=== PATIENT | female | born 1990 | race Caucasian/White ===

== ENCOUNTER 2017-03-08 13:20 | Emergency (ER) | payer OTHER ==
[~2017-03-08] VITALS: Ht 170.2 cm; Wt 70.5 kg
[2017-03-08 13:40] VITALS: BP 126/74
[2017-03-08] MEDS ORDERED: oxyCODONE/APAP 5/325 MG 1 TAB TAB PO ONE (15:00)
[2017-03-08] MEDS ORDERED: IBUPROFEN 600 MG TAB PO ONE (15:00)
[2017-03-08] MEDS ORDERED: ONDANSETRON 4 MG ODT PO ONE (15:00)
--- NOTE | 2017-03-08 15:11 | NUR ---
Pt taken to CT via w/c.
--- NOTE | 2017-03-08 15:31 | NUR ---
Pt back from CT. Lab at bedside for blood draw.
--- NOTE | 2017-03-08 15:33 | NUR ---
26/F presents to ED with c/o right flank pain x 2 days, worse today while at work. Descibes pain as sharp, non radiating, 05/27. C/o nausea, denies vomiting, denies fever or chills. Denies any trauma or injury. AOX4, clear speech. VSS.
--- NOTE | 2017-03-08 15:44 | NUR ---
Pt instructed to not drive after receiving medication being given. Pt verbalized understanding and called a friend for a ride.
[2017-03-08 15:59] LABS: ANION GAP 12.2 (8-16); CALCIUM 8.6 mg/dL (8.5-10.1); CARBON DIOXIDE 28.4 mmol/L (21-32); CREATININE 0.7 mg/dL (0.6-1.3); POTASSIUM 3.6 mmol/L (3.5-5.1)
--- NOTE | 2017-03-08 16:52 | NUR ---
Patient appears to be resting comfortably in bed. VSS.
[2017-03-08 17:25] VITALS: BP 113/63
--- NOTE | 2017-03-08 17:26 | NUR ---
Patient discharged with v/s stable. Written and verbal after care instructions given and explained. Patient alert, oriented and verbalized understanding of instructions. Ambulatory with steady gait. All questions addressed prior to discharge. ID band removed. Patient advised to follow up with PMD. Rx of ZOFRAN AND FLEXERIL given. Patient educated on indication of medication including possible reaction and side effects. Opportunity to ask questions provided and answered.
== END 2017-03-08 17:26 | disposition home or self-care (01) ==
LOC: MED 13:20
DX: R10.9 Unspecified abdominal pain (principal); R31.9 Hematuria, unspecified; R35.0 Frequency of micturition
CPT/HCPCS: 36415; 74176; 80048; 81002; 81025; 99285; S0119

== ENCOUNTER 2018-02-08 18:51 | Emergency (ER) | payer OTHER ==
[~2018-02-08] VITALS: Ht 165.1 cm; Wt 7.5 kg
[2018-02-08 18:57] VITALS: BP 113/77
--- NOTE | 2018-02-08 19:18 | NUR ---
PATIENT PRESENTS TO ED WITH N/V X2 WEEKS. PT STATES UNABLE TO KEEP FOOD AND FLUIDS DONWN. SKIN IS PINK/WARM/DRY; AAOX4 WITH EVEN AND STEADY GAIT; LUNGS CLEAR BL; HR EVEN AND REGULAR; PT DENIES ANY FEVER, CP, SOB, OR COUGH AT THIS TIME; PATIENT STATES PAIN OF 0/10 AT THIS TIME; VSS; PATIENT POSITIONED FOR COMFORT; HOB ELEVATED; BEDRAILS UP X2; BED DOWN. ER MD MADE AWARE OF PT STATUS. CONTINUE TO MONITOR.
--- NOTE | 2018-02-08 19:18 | NUR ---
PT TAKEN TO BED 6
--- NOTE | 2018-02-08 19:18 | NUR ---
GAVE REPORT TO REYNALDO PRITCHARD
--- NOTE | 2018-02-08 19:46 | NUR ---
Shahab hamilton in EDM - 02/08/18 at 1951 by TORI Patient discharged with v/s stable. Written and verbal after care instructions given and explained. Patient verbalized understanding. Ambulatory with steady gait. All questions addressed prior to discharge. Advised to follow up with PMD.
[2018-02-08] MEDS ORDERED: ONDANSETRON 4 MG/2 ML VIAL IVP ONE (20:10)
[2018-02-08] MEDS ORDERED: DEXT 5% / LACT RING 1,000 ML IV ONE (20:10)
[2018-02-08] MEDS ORDERED: cefTRIAXone 1,000 MG VIAL ONE (20:17)
[2018-02-08 20:19] LABS: BILIRUBIN,URINE NEGATIVE (NEGATIVE); BLOOD, URINE 1+ (NEGATIVE); COLOR,URINE YELLOW (YELLOW); LEUKOCYTE ESTERASE ,URINE 2+ (NEGATIVE); NITRITE, URINE NEGATIVE (NEGATIVE); PH,URINE 6.5 (5.0-9.0); UGLUCOSE NEGATIVE (NEGATIVE)
[2018-02-08 20:21] LABS: APPEARANCE,URINE HAZY (CLEAR)
[2018-02-08 20:36] LABS: BASOPHILS % (AUTO) 0.1 % (0.0-2.0); EOSINOPHILS # (AUTO) 0.1 K/uL (0-0.4); EOSINOPHILS % (AUTO) 0.7 % (0.0-4.0); HEMOGLOBIN 13.8 g/dL (12.0-16.0); LYMPHOCYTES # (AUTO) 1.9 K/uL (2.5-16.5); LYMPHOCYTES % (AUTO) 14.7 % (20.5-51.1); MEAN CORPUSCULAR HEMOGLOBIN 31 pg (27-31); MEAN CORPUSCULAR HGB CONC 35 g/dL (33-37); MEAN CORPUSCULAR VOLUME 90.8 fL (80-94); MONOCYTES # (AUTO) 0.7 K/uL (0.8-1.0); NEUTROPHILS # (AUTO) 10.3 K/uL (1.8-7.7); NEUTROPHILS % (AUTO) 79.5 % (42.2-75.2); PLATELET COUNT (AUTO) 242 K/uL (140-450); RED BLOOD CELL COUNT(AUTO) 4.41 MIL/uL (4.20-5.40); RED CELL DISTRIBUTION WIDTH 12.9 % (11.6-13.7)
--- NOTE | 2018-02-08 20:39 | NUR ---
PT AMB W/O ASST TO [facility]
[2018-02-08 20:43] LABS: ANION GAP 13.5 (8-16); CREATININE 0.7 mg/dL (0.6-1.3); POTASSIUM 3.5 mmol/L (3.5-5.1)
[2018-02-08 20:48] LABS: ALBUMIN 3.8 g/dL (3.4-5.0); TOTAL BILIRUBIN 0.9 mg/dL (0.0-1.0)
--- NOTE | 2018-02-08 20:48 | NUR ---
PT SENT TO U/S WITH TECH
--- NOTE | 2018-02-08 21:28 | NUR ---
PT RETURN FROM ULTRASOUND
[2018-02-08 22:27] LABS: RBC,URINE 3-10 (FEW) /HPF (0-5)
[2018-02-08 22:39] VITALS: BP 111/68
--- NOTE | 2018-02-08 22:39 | NUR ---
Patient discharged with v/s stable. Written and verbal after care instructions given and explained. Patient alert, oriented and verbalized understanding of instructions. Ambulatory with steady gait. All questions addressed prior to discharge. ID band removed. Patient advised to follow up with PMD. Rx of , KEFLEX 500MG, ZOFRAN ODT 4MG given. Patient educated on indication of medication including possible reaction and side effects. Opportunity to ask questions provided and answered.
== END 2018-02-08 22:39 | disposition home or self-care (01) ==
LOC: MED 18:51
DX: O23.41 Unspecified infection of urinary tract in pregnancy, first trimester (principal); Z3A.01 Less than 8 weeks gestation of pregnancy
CPT/HCPCS: 36415; 76817; 80053; 81001; 81025; 83690; 84702; 85025; 86900; 86901; 87086; 96365; 96366; 96375; 99285; J0696; J2405; Q0092

== ENCOUNTER 2018-02-12 09:38 | Emergency (ER) | payer OTHER ==
[~2018-02-12] VITALS: Ht 165.1 cm; Wt 70.3 kg
[2018-02-12 09:44] VITALS: BP 130/77
--- NOTE | 2018-02-12 09:50 | NUR ---
PT AMBULATES TO ER BE 11
--- NOTE | 2018-02-12 09:58 | NUR ---
PATIENT PRESENTS TO ED WITH C/O REPEATED N/V X SINCE ----LOWER ABDOMINAL CRAMPING TYPE PAIN WITH SPOTTING UPON WIPING PER PT ---PT SEEN 02/08/2018 S/P GROUND LEVEL FALL ONTO HER BACK SIDE---CONCERNED ABOUT G 3 P2 DENIES DIARRHEA; SKIN IS PINK/WARM/DRY; AAOX4 WITH EVEN AND STEADY GAIT; LUNGS CLEAR BL; HR EVEN AND REGULAR; PT DENIES ANY FEVER, CP, SOB, OR COUGH AT THIS TIME; PATIENT STATES PAIN OF 6/10 AT THIS TIME; VSS; PATIENT POSITIONED FOR COMFORT; HOB ELEVATED; BEDRAILS UP X2; BED DOWN. ER MD MADE AWARE OF PT STATUS.
[2018-02-12] MEDS ORDERED: NACL 0.9% 1,000 ML IV ONE (10:00)
[2018-02-12] MEDS ORDERED: METOCLOPRAMIDE 10 MG/2 ML INJ VIAL IVP ONE (10:00)
--- NOTE | 2018-02-12 11:18 | NUR ---
ABLE TO HOLD DOWN CRACKERS EATEN AT BEDSIDE Patient discharged with v/s stable. Written and verbal after care instructions given and explained. Patient alert, oriented and verbalized understanding of instructions. Ambulatory with steady gait. All questions addressed prior to discharge. ID band removed. Patient advised to follow up with PMD. Rx of REGLAN PO given. Patient educated on indication of medication including possible reaction and side effects. Opportunity to ask questions provided and answered.
[2018-02-12 11:19] VITALS: BP 107/69
== END 2018-02-12 11:18 | disposition home or self-care (01) ==
LOC: MED 09:38
DX: O21.9 Vomiting of pregnancy, unspecified (principal); Z3A.01 Less than 8 weeks gestation of pregnancy
CPT/HCPCS: 81002; 81025; 96361; 96374; 99284; J2765; J7030

== ENCOUNTER 2018-02-26 22:11 | Emergency (ER) | payer OTHER ==
[~2018-02-26] VITALS: Ht 165.1 cm; Wt 74.0 kg
[2018-02-26 22:17] VITALS: BP 124/71
--- NOTE | 2018-02-26 22:20 | NUR ---
URINE COLLECTED. PT RETURNED TO LOBBY
--- NOTE | 2018-02-26 22:25 | NUR ---
PT AMBULATED TO ER BED 05
--- NOTE | 2018-02-26 22:26 | NUR ---
27/F CAME IN ED, C/O MINIMAL VAGINAL BLEEDING X1 DAY. PT IS 10 WEEKS , . PT REPORTS 5/10 CRAMPING SUPRAPUBIC PAIN, NONRADIATING, X1 DAY. PT DENIES DIZZINESS, FEVER, CP, SOB, COUGH, N/V/D, DYSURIA; SKIN IS INTACT, PINK/WARM/DRY; AAOX4, PERRL, WITH EVEN AND STEADY GAIT; LUNGS CLEAR BL, BREATHING UNLABORED; HR EVEN AND REGULAR, BL PERIPHERAL PULSES PRESENT; BS ACTIVE X4, NO TENDERNESS TO PALPATION; VSS; PATIENT POSITIONED FOR COMFORT; HOB ELEVATED; BEDRAILS UP X2; BED DOWN.
--- NOTE | 2018-02-26 22:44 | NUR ---
Ultrasound at bedside.
[2018-02-26 22:49] LABS: BASOPHILS % (AUTO) 0.3 % (0.0-2.0); EOSINOPHILS # (AUTO) 0.1 K/uL (0-0.4); EOSINOPHILS % (AUTO) 1.1 % (0.0-4.0); HEMOGLOBIN 12.8 g/dL (12.0-16.0); LYMPHOCYTES # (AUTO) 2.2 K/uL (2.5-16.5); LYMPHOCYTES % (AUTO) 22.2 % (20.5-51.1); MEAN CORPUSCULAR HEMOGLOBIN 32 pg (27-31); MEAN CORPUSCULAR HGB CONC 35 g/dL (33-37); MEAN CORPUSCULAR VOLUME 91.3 fL (80-94); MONOCYTES # (AUTO) 0.6 K/uL (0.8-1.0); MONOCYTES % (AUTO) 6.1 % (1.7-9.3); NEUTROPHILS # (AUTO) 7.1 K/uL (1.8-7.7); NEUTROPHILS % (AUTO) 70.3 % (42.2-75.2); PLATELET COUNT (AUTO) 236 K/uL (140-450); RED BLOOD CELL COUNT(AUTO) 4.05 MIL/uL (4.20-5.40); RED CELL DISTRIBUTION WIDTH 12.7 % (11.6-13.7); WHITE BLOOD COUNT (AUTO) 10.1 K/uL (4.8-10.8)
[2018-02-26 22:51] LABS: APPEARANCE,URINE SL CLOUDY (CLEAR); BILIRUBIN,URINE NEGATIVE (NEGATIVE); BLOOD, URINE 3+ (NEGATIVE); COLOR,URINE YELLOW (YELLOW); LEUKOCYTE ESTERASE ,URINE NEGATIVE (NEGATIVE); NITRITE, URINE NEGATIVE (NEGATIVE); UGLUCOSE NEGATIVE (NEGATIVE)
[2018-02-26 23:09] LABS: RBC,URINE 3-10 (FEW) /HPF (0-5); WBC,URINE 0-5 (RARE) /HPF (0-5)
--- NOTE | 2018-02-26 23:31 | NUR ---
Dr. Hook evaluating patient at bedside.
[2018-02-27 00:46] VITALS: BP 127/78
--- NOTE | 2018-02-27 00:46 | NUR ---
Patient discharged with v/s stable. Written and verbal after care instructions given and explained. Patient verbalized understanding. Ambulatory with steady gait. All questions addressed prior to discharge. Advised to follow up with PMD.
== END 2018-02-27 00:46 | disposition home or self-care (01) ==
LOC: MED 22:11
DX: O20.0 Threatened abortion (principal); O30.001 Twin pregnancy, unspecified number of placenta and unspecified number of amniotic sacs, first trimester; Z3A.10 10 weeks gestation of pregnancy
CPT/HCPCS: 36415; 76801; 76802; 81001; 81025; 84702; 85025; 86900; 86901; 99285; Q0092

== ENCOUNTER 2018-03-16 08:17 | Emergency (ER) | payer OTHER ==
[~2018-03-16] VITALS: Ht 165.1 cm; Wt 71.2 kg
[2018-03-16 08:20] VITALS: BP 127/67
--- NOTE | 2018-03-16 08:22 | NUR ---
Pt ambulated to bed 5. Report given to Nory PRITCHARD.
--- NOTE | 2018-03-16 08:30 | NUR ---
27YO F TO ER FOR HEADACHE AND ABD CRAMPING DURING . PT STATES BEING 12 WKS PREGNENT WITH TWINS. PT STATES HEADACHE WITH SENSITIVITY TO LIGHT, SHARP LOWER ABD CRAMPING PAIN X1 DAY WITH N/V. BS ACTIVE X4, ABD SOFT WITH TENDERNESS TO LOWER ABD ON PALPATION. PT DENIES ANY VAGINAL BLEEDING OR DISCHARGE, DIARRHEA. LS CLEAR THROUGHOUT. NO OTHER MEDICAL CO AT THIS TIME. ER MD MADE AWARE, WILL CONTINUE TO MONITOR. PT POSITIONED FOR COMFORT. Addendum: 03/16/18 at 0916 by [facility] PAIN 6/10
[2018-03-16] MEDS ORDERED: NACL 0.9% 1,000 ML IV ONE (09:10)
[2018-03-16] MEDS ORDERED: METOCLOPRAMIDE 10 MG/2 ML INJ VIAL IVP ONE (09:10)
--- NOTE | 2018-03-16 09:55 | NUR ---
ULTRASOUND AT BEDSIDE
[2018-03-16 10:16] LABS: APPEARANCE,URINE SL CLOUDY (CLEAR); BILIRUBIN,URINE NEGATIVE (NEGATIVE); BLOOD, URINE NEGATIVE (NEGATIVE); COLOR,URINE YELLOW (YELLOW); LEUKOCYTE ESTERASE ,URINE 1+ (NEGATIVE); NITRITE, URINE NEGATIVE (NEGATIVE); UGLUCOSE NEGATIVE (NEGATIVE)
[2018-03-16 10:30] LABS: RBC,URINE 0-5 (RARE) /HPF (0-5); WBC,URINE 0-5 (RARE) /HPF (0-5)
[2018-03-16 10:49] VITALS: BP 127/67
--- NOTE | 2018-03-16 10:49 | NUR ---
Patient discharged with v/s stable. Written and verbal after care instructions given and explained. Patient alert, oriented and verbalized understanding of instructions. Ambulatory with steady gait. All questions addressed prior to discharge. ID band removed. Patient advised to follow up with PMD. Rx of NITROFURANTOIN given. Patient educated on indication of medication including possible reaction and side effects. Opportunity to ask questions provided and answered.
== END 2018-03-16 10:49 | disposition home or self-care (01) ==
LOC: MED 08:17
DX: O23.41 Unspecified infection of urinary tract in pregnancy, first trimester (principal); O34.81 Maternal care for other abnormalities of pelvic organs, first trimester; N83.202 Unspecified ovarian cyst, left side; R51 Headache; Z3A.12 12 weeks gestation of pregnancy
CPT/HCPCS: 36415; 76801; 81001; 81025; 84702; 87086; 96361; 96374; 99285; J2765; Q0092

== ENCOUNTER 2019-09-27 10:54 | Emergency (ER) | payer OTHER ==
[~2019-09-27] VITALS: Ht 167.6 cm; Wt 74.4 kg
[2019-09-27 10:59] VITALS: BP 136/67
--- NOTE | 2019-09-27 11:03 | NUR ---
Patient ambulted steady gait to bed 4.
--- NOTE | 2019-09-27 11:07 | NUR ---
PATIENT PRESENTS TO ED WITH C/O ABD CRAMPING WITH VAGINAL BLEEDING X 2 DAYS, PT STATES SHE MIGHT BE .DENIES N/V/D; PATIENT STATES PAIN OF 7/10 AT THIS TIME; VSS; PATIENT POSITIONED FOR COMFORT; HOB ELEVATED; BEDRAILS UP X2; BED DOWN. ER MD MADE AWARE OF PT STATUS.
[2019-09-27 11:48] LABS: BASOPHILS % (AUTO) 0.2 % (0.0-2.0); EOSINOPHILS % (AUTO) 0.6 % (0.0-4.0); HEMATOCRIT 42.3 % (36-48); HEMOGLOBIN 14.6 g/dL (12.0-16.0); LYMPHOCYTES # (AUTO) 1.4 K/uL (2.5-16.5); LYMPHOCYTES % (AUTO) 19.1 % (20.5-51.1); MEAN CORPUSCULAR HEMOGLOBIN 31 pg (27-31); MEAN CORPUSCULAR HGB CONC 35 g/dL (33-37); MEAN CORPUSCULAR VOLUME 90.5 fL (80-94); MONOCYTES # (AUTO) 0.3 K/uL (0.8-1.0); MONOCYTES % (AUTO) 4.5 % (1.7-9.3); NEUTROPHILS # (AUTO) 5.5 K/uL (1.8-7.7); NEUTROPHILS % (AUTO) 75.6 % (42.2-75.2); PLATELET COUNT (AUTO) 227 K/uL (140-450); RED BLOOD CELL COUNT(AUTO) 4.67 MIL/uL (4.20-5.40); RED CELL DISTRIBUTION WIDTH 13.3 % (11.6-13.7); WHITE BLOOD COUNT (AUTO) 7.3 K/uL (4.8-10.8)
[2019-09-27 12:02] LABS: APPEARANCE,URINE CLOUDY (CLEAR); BILIRUBIN,URINE 1+ (NEGATIVE); BLOOD, URINE TRACE-I (NEGATIVE); COLOR,URINE YELLOW (YELLOW); LEUKOCYTE ESTERASE ,URINE 2+ (NEGATIVE); NITRITE, URINE NEGATIVE (NEGATIVE); UGLUCOSE NEGATIVE (NEGATIVE)
[2019-09-27 12:18] LABS: ALBUMIN 3.8 g/dL (3.4-5.0); ANION GAP 12.1 (8-16); CARBON DIOXIDE 24.6 mmol/L (21-32); CREATININE 0.7 mg/dL (0.6-1.3); POTASSIUM 3.7 mmol/L (3.5-5.1); TOTAL BILIRUBIN 1.3 mg/dL (0.0-1.0)
[2019-09-27 12:30] LABS: RBC,URINE 0-5 /HPF (0-5)
--- NOTE | 2019-09-27 12:30 | NUR ---
PT REQUESTING TO LEAVE DUE TO FAMILY EMERGENCY. DR TERENCE FOOTE.
[2019-09-27 12:31] VITALS: BP 136/67
--- NOTE | 2019-09-27 12:31 | NUR ---
PATIENT ELOPED FROM FACILITY. DISCHARGE INSTRUCTIONS NOT GIVEN TO PATIENT. DR. PRATT NOTIFIED.
== END 2019-09-27 12:30 | disposition left against medical advice (07) ==
LOC: MED 10:54
DX: O46.8X1 Other antepartum hemorrhage, first trimester (principal); O23.41 Unspecified infection of urinary tract in pregnancy, first trimester; R82.71 Bacteriuria; Z3A.01 Less than 8 weeks gestation of pregnancy; Z98.890 Other specified postprocedural states
CPT/HCPCS: 36415; 76817; 80053; 81001; 81025; 83690; 84702; 85025; 86900; 86901; 87086; 99284; Q0092

== ENCOUNTER 2023-03-11 10:49 | Emergency (ER) | payer OTHER ==
[~2023-03-11] VITALS: Ht 165.1 cm; Wt 78.5 kg
[2023-03-11 10:55] VITALS: BP 123/84; PULSE 75; RESP 20; TEMP 98; O2SAT 99
[2023-03-11] MEDS ORDERED: KETOROLAC 30 MG/ML VIAL IM ONE (11:30)
[2023-03-11] MEDS ORDERED: CYCLOBENZAPRINE 10 MG TAB PO ONE (11:30)
--- NOTE | 2023-03-11 11:30 | NUR ---
PT REFUSED MEDICATION. STATED " I HAVE TO CLAY TEMPERER MY KIDS AND DRIVE TO [place]"
[2023-03-11] MEDS ORDERED: CRUSHER, PILL MC ONE (11:41)
[2023-03-11] MEDS ORDERED: IBUP-2213 PO (11:46)
[2023-03-11] MEDS ORDERED: DICL100G5 TP (11:46)
[2023-03-11] MEDS ORDERED: CYCL-711 PO (11:46)
[2023-03-11] MEDS ORDERED: SULF-59 PO (12:08)
[2023-03-11 12:10] VITALS: BP 126/75; PULSE 74; RESP 18; TEMP 98.1; O2SAT 99
--- NOTE | 2023-03-11 12:10 | NUR ---
Patient discharged with v/s stable. Written and verbal after care instructions given and explained. Patient alert, oriented and verbalized understanding of instructions. Ambulatory with steady gait. All questions addressed prior to discharge. ID band removed. Patient advised to follow up with PMD. Rx of FLEXERIL, DICLOFENAC,IBUPROFEN,BACTRIM Ds given. Patient educated on indication of medication including possible reaction and side effects. Opportunity to ask questions provided and answered.
== END 2023-03-11 12:10 | disposition home or self-care (01) ==
LOC: MED 10:49
DX: S39.012A Strain of muscle, fascia and tendon of lower back, initial encounter (principal); X58.XXXA Exposure to other specified factors, initial encounter; Y93.89 Activity, other specified; Y92.098 Other place in other non-institutional residence as the place of occurrence of the external cause; Y99.8 Other external cause status
CPT/HCPCS: 81002; 81025; 99283; J1885